=== PATIENT | female | born 1990 | race Caucasian/White ===

== ENCOUNTER 2017-11-08 04:04 | Emergency (ER) | payer OTHER ==
[~2017-11-08] VITALS: Ht 152.4 cm; Wt 94.2 kg
[~2017-11-08 04:04] MED LIST: IBUP600 PO; PERI8.6T PO; PREN0.01 PO
[2017-11-08 04:07] VITALS: BP 170/93; PULSE 86; RESP 18; TEMP 98.3; O2SAT 98
[2017-11-08] MEDS ORDERED: ZITHTAB PO (04:19)
--- NOTE | 2017-11-08 04:19 | PD ---
HPI Chief Complaint: ear ache Time Seen by Provider: 04:15 Travel History International Travel<30 days: No Contact w/Intl Traveler<30days: No Traveled to known affect area: No History of Present Illness HPI 27-year-old female presents to the emergency department complaint of right ear pain. Patient has had ear pain since last evening but has had upper respiratory infection sinus pressure for the past 2 days. Patient said yellow- green drainage. Patient does not report fever sore throat or other respiratory symptoms cough congestion shortness of breath. Patient rates her pain as moderate to severe. Patient did not take any medications prior to arrival to the emergency department because she ran out of [place] for pain did not respond to eardrops for swimmer's ear. Patient's last period was approximately 2 years ago as she has an IUD and denies . Patient denies other concerns or complaints and is otherwise in good health. PFS Past Medical History Narrative Medical ; no tobacco use; nursing notes are reviewed Diminished Hearing: No Immunizations Current: Yes : 4 Miscarriage: 2 : 1 Social History Alcohol Use: No Tobacco Use: No Substance Use: No Allergies-Medications (Allergen,Severity, Reaction): Coded Allergies: No Known Allergies (Verified , 01/23/15) Reported Meds & Prescriptions Reported Meds & Active Scripts Active Terra-Colace 8.6-50 mg (Sennosides-Docusate Sodium) 1 Tab Tab 2 Tab PO Q12HR Motrin 600 Mg Tab (Ibuprofen) 600 Mg Tab 600 Mg PO Q6H PRN Reported Vit ( Plus) (Prenat Multivit/[place]/Iron/Folic Ac) Tab 1 Tab PO DAILY Review of Systems Except as stated in HPI: all other systems reviewed are Neg Physical Exam Narrative GENERAL: Well-developed well-nourished female no acute distress or respiratory SKIN: Warm and dry. HEAD: Normocephalic. EYES: No scleral icterus. No injection or drainage. ENT: Mucous membranes moist airways patent sinus tenderness to percussion right tympanic membrane is red dull and no foreign body to external auditory canals left tympanic membrane is pink no loss of landmarks. NECK: Supple, trachea midline. No JVD or lymphadenopathy. CARDIOVASCULAR: Regular rate and rhythm without murmurs, gallops, or rubs. RESPIRATORY: Breath sounds equal bilaterally. No accessory muscle use. GASTROINTESTINAL: Abdomen soft, non-tender, nondistended. MUSCULOSKELETAL: No cyanosis, or edema. BACK: Nontender without obvious deformity. No CVA tenderness. Data Data Last Documented VS Vital Signs Date Time Temp Pulse Resp B/P (MAP) Pulse Ox O2 Delivery O2 Flow Rate FiO2 11/08/17 04:07 98.3 86 18 170/93 (118) 98 MDM Medical Decision Making Medical Screen Exam Complete: Yes Emergency Medical Condition: Yes Medical Record Reviewed: Yes Differential Diagnosis Otitis externa and otitis media opinion of a perforation sinusitis upper respiratory infection Narrative Course Patient with abnormal appearing right tympanic membrane consistent with otitis media most likely precipitated by sinusitis. Patient given dose of ibuprofen 800 mg and oral antibiotic patient is otherwise stable for outpatient management and change follow-up with her primary care provider Diagnosis Primary Impression: Otitis media Referrals: Primary Care Physician call for appointment Additional Instructions: Increase fluid hydration Complete course of antibiotic Follow-up with your primary care provider Take ibuprofen/Advil/Motrin 800 mg as often as every 8 hours as needed for pain associated with inflammation or for fever 100.4F or greater May take acetaminophen as needed for fever 100.4F or greater Return to the emergency department for any concerns or change Med/Other Pt SpecificInfo: Prescription(s) given Scripts Azithromycin (Zithromax Z-Brandon) 250 Mg Dspk 250 MG PO DIRECTED for Infection, #1 DSPK 0 Refills 500 MG (2 tabs) day 1, then 1 tab days 2-5. Prov: Alisa Martinez MD 11/08/17 Disposition: 01 DISCHARGE HOME Condition: Stable Alisa Martinez MD Nov 08, 2017 04:19
[2017-11-08] MEDS ORDERED: IBUPROFEN 800 MG TAB PO ONE (04:45)
[2017-11-08] MEDS ORDERED: AZITHROMYCIN 250 MG TAB PO ONE (04:45)
== END 2017-11-08 04:48 | disposition home or self-care (01) ==
LOC: PHED 04:04
DX: H66.90 Otitis media, unspecified, unspecified ear (principal)
CPT/HCPCS: 99283